=== PATIENT | female | born 1945 | race African-American/Black ===

== ENCOUNTER 2019-09-06 13:11 | Observation (INO) ==
[~2019-09-06 13:11] MED LIST: Total Joint Mixture (50 ml) INTRAART ONE; Total Joint Mixture (50 ml) IR ONE
[2019-09-06] MEDS ORDERED: Albuterol 2.5 MG/3 ML NEBULIZER IH PRN (13:27)
[2019-09-06] MEDS ORDERED: *HR* HYDROmorphone PF 0.5 MG/0.5 ML SYRINGE IVP PRN (13:29)
[2019-09-06] MEDS ORDERED: *HR* OxyCODONE Immed Rel 5 MG TABLET PO PRN (13:29)
[2019-09-06] MEDS ORDERED: Ondansetron 4 MG/2 ML VIAL IVP ONE (13:29)
[2019-09-06] MEDS ORDERED: *HR* Promethazine 25 MG/ML VIAL IVP PRN (13:29)
[2019-09-06] MEDS ORDERED: Ringers Solution, Lactated 1,000 ML IVC SCH (13:30)
[2019-09-06] MEDS ORDERED: Acetaminophen IV 1,000 MG/100 ML INFUS..BTL IVPB ONE (13:31)
[2019-09-06] MEDS ORDERED: Gabapentin 300 MG CAPSULE PO ONE (13:31)
[2019-09-06] MEDS ORDERED: Ondansetron 4 MG/2 ML VIAL ONE (15:07)
[2019-09-06] MEDS ORDERED: *HR* FentaNYL (PF) 100 MCG/2 ML VIAL ONE (15:07)
[2019-09-06] MEDS ORDERED: Lidocaine -MPF 2% 2 ML VIAL ONE (15:07)
[2019-09-06] MEDS ORDERED: *HR* Midazolam HCl 2 MG/2 ML VIAL ONE (15:07)
[2019-09-06] MEDS ORDERED: *HR* Propofol 200 MG/20 ML VIAL IVP ONE ×2 (15:07→15:08)
[2019-09-06] MEDS ORDERED: Ethanol\\Acetic Acid\\Na Ace\\Ben 1,000 ML IRRIG.SOLN IR ONE (15:31)
[2019-09-06] MEDS ORDERED: Dexamethasone 4 MG/ML VIAL ONE (15:32)
[2019-09-06] MEDS ORDERED: Ropivacaine/PF 0.5% 30 ML VIAL ONE (15:32)
[2019-09-06] MEDS ORDERED: ROPIVACAINE/PF/NS 0.25% 1 EACH SYRINGE INTRAART ONE (15:32)
[2019-09-06] MEDS ORDERED: Naloxone 0.4 MG/ML INJ IVP PRN (17:33)
[2019-09-06 18:27] LABS: BUN/Creatinine Ratio 17 (6-26); Blood Urea Nitrogen 15 mg/dL (8-23); Calcium 9.6 mg/dL (8.6-10.3); Carbon Dioxide 25 mEq/L (23-29); Chloride 104 mEq/L (98-107); Glucose 88 mg/dL (70-105); Osmolality,Calculated 286 (280-300); Potassium 3.3 mEq/L (3.5-5.1); Sodium 138 mEq/L (136-145); eGFR For African Americans > 60 (> 60); eGFR For Non-African Americans > 60 (> 60)
[2019-09-06 18:28] LABS: Magnesium 1.9 mg/dL (1.6-2.6); Phosphorous 3.5 mg/dL (2.7-4.5)
[2019-09-06 18:30] LABS: Basophils % 0.3 %; Eosinophils % 0.3 %; Hematocrit 37.9 % (35.3-44.9); Hemoglobin 11.9 g/dL (11.5-15.4); Immature Granulocytes % 0.3 % (0-4); Lymphocytes # 1.8 K/mcL (0.6-4.6); Lymphocytes % 27.9 %; Mean Corpuscular HGB Conc 31.4 g/dL (31.6-35.5); Mean Corpuscular Hemoglobin 29.8 pg (28.0-33.3); Mean Platelet Volume 11.4 fL (9.4-12.4); Monocytes # 0.5 K/mcL (0.0-1.3); Platelet Count 194 K/mcL (140-400); Red Blood Count 3.99 M/mcL (3.82-4.97); Red Cell Distribution Width 13.1 % (11.5-14.5); Segmented Neutrophils % 63.2 %; White Blood Count 6.4 K/mcL (4.3-11.1)
[2019-09-06] MEDS: Gabapentin 400 MG CAPSULE PO SCH (20:12)
[2019-09-07] MEDS: Gabapentin 400 MG CAPSULE PO SCH ×3 (08:12→20:39)
[2019-09-07] MEDS: DilTIAZem CD (24hr) 120 MG CAP.ER.24H PO SCH (13:53)
[2019-09-08] MEDS: DilTIAZem CD (24hr) 120 MG CAP.ER.24H PO SCH (07:50)
[2019-09-08] MEDS: Gabapentin 400 MG CAPSULE PO SCH ×3 (07:50→23:25)
[2019-09-08 09:46] LABS: Hematocrit 35.9 % (35.3-44.9); Hemoglobin 11.9 g/dL (11.5-15.4); Mean Corpuscular HGB Conc 33.1 g/dL (31.6-35.5); Mean Corpuscular Hemoglobin 31.2 pg (28.0-33.3); Mean Platelet Volume 11.5 fL (9.4-12.4); Platelet Count 179 K/mcL (140-400); Red Blood Count 3.82 M/mcL (3.82-4.97); Red Cell Distribution Width 13.1 % (11.5-14.5); White Blood Count 5.1 K/mcL (4.3-11.1)
[2019-09-08 10:04] LABS: BUN/Creatinine Ratio 18 (6-26); Blood Urea Nitrogen 13 mg/dL (8-23); Calcium 9.6 mg/dL (8.6-10.3); Carbon Dioxide 29 mEq/L (23-29); Chloride 102 mEq/L (98-107); Glucose 120 mg/dL (70-105); Osmolality,Calculated 285 (280-300); Potassium 3.4 mEq/L (3.5-5.1); Sodium 137 mEq/L (136-145); eGFR For African Americans > 60 (> 60); eGFR For Non-African Americans > 60 (> 60)
[2019-09-08] MEDS ORDERED: ROPIVACAINE/PF/NS 0.25% 1 EACH SYRINGE INTRAART ONE (17:27)
[2019-09-08] MEDS ORDERED: *HR* Midazolam HCl 2 MG/2 ML VIAL ONE ×2 (17:28→18:17)
[2019-09-08] MEDS ORDERED: Lidocaine -MPF 2% 5 ML VIAL ONE (17:28)
[2019-09-08] MEDS ORDERED: Ethanol\\Acetic Acid\\Na Ace\\Ben 1,000 ML IRRIG.SOLN IR ONE (17:30)
[2019-09-08] MEDS ORDERED: *HR* OxyCODONE Immed Rel 5 MG TABLET PO PRN (17:56)
[2019-09-08] MEDS ORDERED: Ondansetron 4 MG/2 ML VIAL IVP ONE (17:56)
[2019-09-08] MEDS ORDERED: *HR* HYDROmorphone PF 0.5 MG/0.5 ML SYRINGE IVP PRN (17:56)
[2019-09-08] MEDS ORDERED: *HR* Propofol 200 MG/20 ML VIAL IVP ONE (18:17)
[2019-09-08] MEDS ORDERED: *HR* FentaNYL (PF) 100 MCG/2 ML VIAL ONE ×3 (18:17→19:08)
[2019-09-08] MEDS ORDERED: Lidocaine -MPF 2% 2 ML VIAL ONE (18:17)
[2019-09-08] MEDS ORDERED: Ondansetron 4 MG/2 ML VIAL ONE (18:17)
[2019-09-08] MEDS ORDERED: Tranexamic Acid 1,000 MG/10 ML VIAL ONE (18:17)
[2019-09-08] MEDS ORDERED: Dexamethasone 4 MG/ML VIAL ONE (18:17)
[2019-09-08 21:02] LABS: Hemoglobin 11.6 g/dL (11.5-15.4)
[2019-09-08] MEDS ORDERED: *HR* Promethazine 25 MG/ML VIAL IVP PRN (21:40)
[2019-09-08] MEDS ORDERED: Sennosides 8.6 MG TABLET PO PRN (21:40)
[2019-09-08] MEDS ORDERED: Ondansetron 4 MG/2 ML VIAL IVP PRN (21:40)
[2019-09-08] MEDS ORDERED: MOM Conc 10 ML UD.LIQ PO PRN (21:40)
[2019-09-08] MEDS ORDERED: Ringers Solution, Lactated 1,000 ML IVC SCH (21:45)
[2019-09-08] MEDS: HYDROcodone BIT/Homatropine 5 MG TABLET PO PRN (23:25)
[2019-09-09] MEDS ORDERED: *HR* OxyCODONE Immed Rel 5 MG TABLET ONE (10:08)
[2019-09-09] MEDS ORDERED: Gabapentin 400 MG CAPSULE ONE ×2 (10:08)
[2019-09-09] MEDS ORDERED: DilTIAZem CD (24hr) 120 MG CAP.ER.24H PO ONE (10:08)
[2019-09-09] MEDS ORDERED: Multivit/Ca/Min/Fe/FA 1 TAB TABLET ONE (10:08)
[2019-09-09] MEDS ORDERED: Potassium Chloride Elixir 20 MEQ/15 ML UDC ONE (10:08)
[2019-09-09] MEDS ORDERED: Aspirin Enteric Coated 81 MG Tablet PO ONE (10:08)
[2019-09-09] MEDS ORDERED: Ascorbic Acid 500 MG TABLET ONE (10:08)
[2019-09-09 14:31] LABS: Hemoglobin 10.8 g/dL (11.5-15.4); Mean Corpuscular HGB Conc 31.8 g/dL (31.6-35.5); Mean Corpuscular Hemoglobin 30.3 pg (28.0-33.3); Mean Corpuscular Volume 95.5 fL (83.0-100.0); Platelet Count 173 K/mcL (140-400); Red Blood Count 3.56 M/mcL (3.82-4.97); Red Cell Distribution Width 13.1 % (11.5-14.5); White Blood Count 9.2 K/mcL (4.3-11.1)
[2019-09-09 14:40] LABS: Hematocrit 33.4 % (35.3-44.9); Hemoglobin 10.5 g/dL (11.5-15.4)
[2019-09-09] MEDS: Ascorbic Acid 500 MG TABLET PO SCH ×2 (16:44→19:45)
[2019-09-09] MEDS: *HR* OxyCODONE Immed Rel 5 MG TABLET PO PRN (19:43)
[2019-09-09] MEDS: Aspirin Enteric Coated 81 MG Tablet PO SCH (19:44)
[2019-09-09] MEDS: DilTIAZem CD (24hr) 120 MG CAP.ER.24H PO SCH (19:44)
[2019-09-09] MEDS: Gabapentin 400 MG CAPSULE PO SCH ×2 (19:44)
[2019-09-09] MEDS: Potassium Chloride Elixir 20 MEQ/15 ML UDC PO SCH (19:45)
[2019-09-09] MEDS: Multivit/Ca/Min/Fe/FA 1 TAB TABLET PO SCH (19:45)
[2019-09-10 01:17] LABS: BUN/Creatinine Ratio 17 (6-26); Blood Urea Nitrogen 15 mg/dL (8-23); Calcium 9.1 mg/dL (8.6-10.3); Carbon Dioxide 26 mEq/L (23-29); Chloride 100 mEq/L (98-107); Glucose 201 mg/dL (70-105); Osmolality,Calculated 285 (280-300); Potassium 4.2 mEq/L (3.5-5.1); Sodium 134 mEq/L (136-145); eGFR For African Americans > 60 (> 60); eGFR For Non-African Americans > 60 (> 60)
[2019-09-10] MEDS: *HR* OxyCODONE Immed Rel 5 MG TABLET PO PRN ×3 (02:57→14:28)
[2019-09-10 05:38] LABS: Basophils % 0.1 %; Eosinophils % 0.1 %; Hematocrit 29.5 % (35.3-44.9); Immature Granulocytes % 0.3 % (0-4); Lymphocytes # 1.4 K/mcL (0.6-4.6); Lymphocytes % 16.5 %; Mean Corpuscular HGB Conc 32.5 g/dL (31.6-35.5); Mean Corpuscular Volume 95.2 fL (83.0-100.0); Neutrophils # 6.3 K/mcL (1.6-8.9); Platelet Count 145 K/mcL (140-400); Red Cell Distribution Width 13.2 % (11.5-14.5)
[2019-09-10 05:39] LABS: Hemoglobin 9.6 g/dL (11.5-15.4); White Blood Count 8.7 K/mcL (4.3-11.1)
[2019-09-10 06:08] LABS: BUN/Creatinine Ratio 17 (6-26); Blood Urea Nitrogen 14 mg/dL (8-23); Calcium 8.7 mg/dL (8.6-10.3); Carbon Dioxide 27 mEq/L (23-29); Chloride 101 mEq/L (98-107); Glucose 180 mg/dL (70-105); Magnesium 1.8 mg/dL (1.6-2.6); Osmolality,Calculated 283 (280-300); Phosphorous 2.9 mg/dL (2.7-4.5); Potassium 3.8 mEq/L (3.5-5.1); Sodium 134 mEq/L (136-145); eGFR For African Americans > 60 (> 60); eGFR For Non-African Americans > 60 (> 60)
[2019-09-10] MEDS: Aspirin Enteric Coated 81 MG Tablet PO SCH (07:32)
[2019-09-10] MEDS: Gabapentin 400 MG CAPSULE PO SCH ×3 (07:32→20:12)
[2019-09-10] MEDS: Ascorbic Acid 500 MG TABLET PO SCH ×2 (07:32→16:59)
[2019-09-10] MEDS: DilTIAZem CD (24hr) 120 MG CAP.ER.24H PO SCH (07:33)
[2019-09-10] MEDS: Multivit/Ca/Min/Fe/FA 1 TAB TABLET PO SCH (07:33)
[2019-09-10] MEDS: HYDROcodone BIT/Homatropine 5 MG TABLET PO PRN ×2 (09:56→19:28)
[2019-09-11] MEDS: *HR* OxyCODONE Immed Rel 5 MG TABLET PO PRN ×3 (00:56→11:53)
[2019-09-11 05:53] LABS: Basophils % 0.3 %; Eosinophils % 0.1 %; Hematocrit 28.9 % (35.3-44.9); Hemoglobin 9.3 g/dL (11.5-15.4); Immature Granulocytes % 0.4 % (0-4); Lymphocytes # 1.7 K/mcL (0.6-4.6); Lymphocytes % 21.5 %; Mean Corpuscular HGB Conc 32.2 g/dL (31.6-35.5); Mean Corpuscular Hemoglobin 30.5 pg (28.0-33.3); Mean Corpuscular Volume 94.8 fL (83.0-100.0); Mean Platelet Volume 11.7 fL (9.4-12.4); Monocytes % 12.5 %; Platelet Count 149 K/mcL (140-400); Red Blood Count 3.05 M/mcL (3.82-4.97); Red Cell Distribution Width 13.4 % (11.5-14.5); Segmented Neutrophils % 65.2 %; White Blood Count 7.7 K/mcL (4.3-11.1)
[2019-09-11 06:26] LABS: BUN/Creatinine Ratio 14 (6-26); Blood Urea Nitrogen 9 mg/dL (8-23); Calcium 8.9 mg/dL (8.6-10.3); Carbon Dioxide 30 mEq/L (23-29); Chloride 100 mEq/L (98-107); Glucose 123 mg/dL (70-105); Magnesium 1.9 mg/dL (1.6-2.6); Osmolality,Calculated 282 (280-300); Potassium 3.4 mEq/L (3.5-5.1); Sodium 136 mEq/L (136-145); eGFR For African Americans > 60 (> 60); eGFR For Non-African Americans > 60 (> 60)
[2019-09-11] MEDS: DilTIAZem CD (24hr) 120 MG CAP.ER.24H PO SCH (08:30)
[2019-09-11] MEDS: Aspirin Enteric Coated 81 MG Tablet PO SCH (08:30)
[2019-09-11] MEDS: Ascorbic Acid 500 MG TABLET PO SCH ×2 (08:30→16:08)
[2019-09-11] MEDS: Multivit/Ca/Min/Fe/FA 1 TAB TABLET PO SCH (08:31)
[2019-09-11] MEDS: Gabapentin 400 MG CAPSULE PO SCH ×2 (08:31→15:24)
[2019-09-11 16:11] VITALS: BP 124/79
== END 2019-09-11 20:39 | disposition home or self-care (01) ==
LOC: SAMDAY 13:11 → 3BNU 13:11 → 3NENU 09-08 20:11
PROVIDERS: ADMIT Family Medicine; ATTEND Family Medicine